=== PATIENT | female | born 1970 | race Hispanic/Latino ===

== ENCOUNTER → 2025-06-12 07:52 | Outpatient (REF) | payer BC, SELFPAY ==
[2025-06-12 11:01] LABS: Hematocrit 43.1 % (37.0-47.0); Hemoglobin 14.3 g/dL (12.0-16.0); Mean Corp Hgb Conc. 33.2 g/dL (33.0-37.0); Mean Corpuscular Volume 88.9 fL (81.0-99.0); Nucleated Red Blood Cells % 0 %; Platelet Count 247 10^3/uL (130-400); Red Cell Dist. Width 13.1 % (11.5-14.5)
[2025-06-12 12:31] LABS: ALT (SGPT) 58 U/L (0-35); AST (SGOT) 38 U/L (14-36); Albumin 4.2 g/dl (3.5-5.0); Alkaline Phosphatase 52 U/L (38-126); Total Protein 7.0 g/dl (6.3-8.2)
[2025-06-12 13:34] LABS: Vitamin D, 25-OH*** 47.0 ng/mL (30-80)
== END ==
LOC: REG 07:52
PROVIDERS: ATTENDING PHYSICIAN Internal Medicine Hematology & Oncology
DX: C50.111 Malignant neoplasm of central portion of right female breast (principal)
CPT/HCPCS: 36415; 80076; 82306; 85025